=== PATIENT | male | born 2000 | race Two or more races ===

== ENCOUNTER 2025-02-20 18:52 | Emergency (ER) | payer OTHER ==
[~2025-02-20] VITALS: Ht 167.6 cm; Wt 69.7 kg
--- NOTE | 2025-02-20 20:33 | DVH ---
XY CHEST TWO VIEWS ROUTINE CLINICAL HISTORY: Chest pain COMPARISON: None TECHNIQUE: Frontal and lateral view of the chest was obtained FINDINGS: Lines and Tubes: None Lungs: No focal consolidation. Pleura: No effusion. No pneumothorax. Cardiomediastinal contours: Unremarkable Bones: No acute osseous abnormality. IMPRESSION: 1. No acute cardiopulmonary disease.
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
[2025-02-20 22:21] VITALS: BP 126/80; PULSE 71; RESP 16; TEMP 98.3; O2SAT 100
[2025-02-20] MEDS: KETOROLAC TROMETH 30 MG/ML 1ML VIAL IM ONE (23:10)
[2025-02-20] MEDS: ACETAMINOPHEN 325 MG TAB PO ONE (23:10)
[2025-02-20 23:14] VITALS: PULSE 56
--- NOTE | 2025-02-22 08:31 | ECG ---
[facility] Test Date: 2025-02-20 Test Time: 22:29:09 Pat Name: SANAZ DUKES Department: [facility] ED Patient ID: [id number] Room: Gender: M Bacon De Rinder: : 2000 Requested By: KAYLEE AWAD Order Number: [id number] Reading MD: Raul Barajas Measurements Intervals [place] Rate: 56 P: 27 NM: 145 QRS: 100 QRSD: 105 T: 51 QT: 402 QTc: 388 Interpretive Statements Sinus rhythm Borderline right axis deviation Electronically Signed On 02-22-2025 10:32:46 PST by Raul Barajas Please click the below link to view image of tracing.
== END 2025-02-20 23:14 | disposition home or self-care (01) ==
LOC: ER 18:52
DX: R07.89 Other chest pain (principal); Z79.899 Other long term (current) drug therapy
CPT/HCPCS: 36415; 71046; 84484; 93005; 96372; 99285; J1885